=== PATIENT | male | born 1950 | race Caucasian/White ===

== ENCOUNTER 2018-11-02 15:18 | Emergency (ER) | payer OTHER, MEDICARE ==
[2018-11-02 15:34] VITALS: PULSE 62
--- NOTE | 2018-11-02 16:00 | ERPHSYRPT ---
- History of Present Illness Time Seen by Provider: 11/02/18 15:45 Source: patient Exam Limitations: clinical condition Patient Subjective Stated Complaint: Fell down camper steps and landed on grass and his right shoulder, right shoulder appears to be dislocated or broken Triage Nursing Assessment: Pt walked into the ER in a make-shift sling, vitals wnl, capillary refill good, wiggles fingers, pulses normal, small abrasion to the right lateral side of the right knee, denies losing consciousness, denies hitting head, denies any other injury Physician History: PATIENT WITH A HISTORY OF HYPERTENSION, CVA, STATES HE SLIPPED AND FELL DOWN TRAILER STEPS ONTO HIS RIGHT SHOULDER. PATIENT DENIES HEAD, NECK OR BACK INJURY. HE COMPLAINS OF SHOULDER DEFORMITY. DENIES NUMBNESS, TINGLING OR WEAKNESS IN EXTREMITIES. Occurred: just prior to arrival Reason for Fall: tripped Injuries/Pain Location: upper extremity Loss of Consciousness: no loss of consciousness Quality: sharpness Severity of Pain-Max: mild Severity of Pain-Current: mild Modifying Factors: Improves With: movement Associated Symptoms (Fall): denies symptoms Allergies/Adverse Reactions: No Known Drug Allergies Allergy (Verified 11/02/18 15:34) Home Medications: Amlodipine Besylate 5 mg PO DAILY 11/02/18 [History] Aspirin EC 81 mg [Ecotrin 81 mg] 81 mg PO DAILY 11/02/18 [History] Atorvastatin Calcium 80 mg PO DAILY 11/02/18 [History] Cyanocobalamin (Vitamin B-12) [B-12] 1 tab PO DAILY 11/02/18 [History] FA/Mv,Ca,Iron,Min/Lycopene/Lut [Centrum Tablet] 1 each PO DAILY 11/02/18 [ History] Tolterodine Tartrate [Tolterodine Tartrate ER] 4 mg PO DAILY 11/02/18 [History] Hx Tetanus, Diphtheria Vaccination/Date Given: No - Review of Systems Constitutional: No Fever, No Chills Eyes: No Symptoms Ears, Nose, & Throat: No Symptoms Respiratory: No Symptoms, No Cough, No Dyspnea Cardiac: No Symptoms, No Chest Pain, No Edema, No Syncope Abdominal/Gastrointestinal: No Symptoms, No Abdominal Pain, No Nausea, No Vomiting, No Diarrhea Genitourinary Symptoms: No Symptoms, No Dysuria Musculoskeletal: Injury, Joint Pain, Joint Swelling, No Back Pain, No Neck Pain Skin: No Symptoms, No Rash Neurological: No Dizziness, No Focal Weakness, No Sensory Changes Psychological: No Symptoms Endocrine: No Symptoms All Other Systems: Reviewed and Negative - Past Medical History Pertinent Past Medical History: Yes Neurological History: Peripheral Neuropathy, Stroke Cardiac History: Hypertension Respiratory History: No Pertinent History Endocrine Medical History: No Pertinent History Musculoskeletal History: Osteoarthritis, Other Other Medical History: Numbness in B feet - Past Surgical History Past Surgical History: Yes Musculoskeletal: Orthopedic Surgery Other Surgical History: spinal surgery - Social History Smoking Status: Never smoker Exposure to second hand smoke: Yes Drug Use: none Patient Lives Alone: No - Nursing Vital Signs Nursing Vital Signs: Initial Vital Signs Temperature 97.8 F 11/02/18 15:25 Pulse Rate 62 11/02/18 15:25 Blood Pressure 146/81 11/02/18 15:25 O2 Sat by Pulse Oximetry 92 L 11/02/18 15:25 Pain Scale Pain Intensity 4 - [place] Coma Score Best Eye Response ([place]): (4) open spontaneously Best Verbal Response ([place]): (5) oriented Best Motor Response ([place]): (6) obeys commands [place] Total: 15 - Physical Exam General Appearance: no apparent distress, alert Head Injury: no evidence of injury Eye Exam: PERRL/EOMI ENT Exam: airway nml Neck Exam: supple, full range of motion (NO POST CERVICAL SPINAL TENDERNESS), normal inspection, No tenderness Respiratory/Chest Exam: normal breath sounds, No chest tenderness, No respiratory distress Cardiovascular Exam: normal heart sounds, regular rate/rhythm Gastrointestinal Exam: soft, normal bowel sounds, No tenderness, No distention, No guarding, No ecchymosis Back Exam: normal inspection, normal range of motion, No vertebral tenderness Extremity Exam: normal range of motion, pelvis stable, limited range of motion ( RIGHT SHOULDER, A-C SEPARATION MARKED, NO SWELLING, DEFORMITY OR ECCHYMOSIS), other (LEFT RADIAL PULSE 2+), No deformities Peripheral Pulses: carotid (R): 2+, carotid (L): 2+, femoral (R): 2+, femoral (L ): 2+, dorsalis-pedis (R): 2+, dorsalis-pedis (L): 2+ Neurologic Exam: alert, oriented x 3, cooperative, sensation nml, No motor deficits Skin Exam: normal color, warm, dry SpO2 Interpretation: normal SpO2: 92 - Radiology Exams Right Shoulder X-ray Interpretation: Interpreted by me (NO FRACTURE OR DISLOCATION, RIGHT A-C SEPARATION) Right Clavicle X-ray Interpretation: Interpreted by me (RIGHT A-C SEPARATION, NO FRACTURE) Ordered Tests: Active Orders 24 hr Category Date Time Status CLAVICLE Stat Exams 11/02/18 15:57 Taken SHOULDER Stat Exams 11/02/18 15:57 Taken Medication Summary Discontinued Medications Generic Name Dose Route Start Last Admin Trade Name Jyoti PRN Reason Stop Dose Admin Acetaminophen 975 mg 11/02/18 16:22 11/02/18 16:32 Tylenol 325 Mg PO 11/02/18 16:23 975 mg STAT STA Administration Acetaminophen Confirm 11/02/18 16:31 Tylenol 325 Mg Administered 11/02/18 16:32 Dose 975 mg .ROUTE .STK-MED ONE - Progress Progress: pain not gone completely Progress Note: 11/02/18 17:04 TYLENOL 975MG ORALLY, APPLICATION RIGHT ARM SLING Counseled pt/family regarding: diagnosis, need for follow-up, rad results - Departure Departure Disposition: Home Clinical Impression: Separation of right acromioclavicular joint, type 5 Condition: Stable Critical Care Time: No Referrals: MONISHA SÁNCHEZ [Primary Care Provider] - Additional Instructions: TYLENOL OR MOTRIN NEEDED FOR PAIN. WEAR RIGHT ARM SLING FOR COMFORT. APPLY ICE OVER SHOULDER SWELLING EVERY 4 HOURS, 30 MINUTES FOR 48 HOURS. CONSULT YOUR PRIMARY CARE PROVIDER FOR ORTHOPEDIC SURGICAL REFERRAL.
[2018-11-02 16:13] VITALS: BP 136/88
[2018-11-02] MEDS ORDERED: TYLENOL 325 MG PO STA (16:22)
[2018-11-02] MEDS ORDERED: TYLENOL 325 MG ONE (16:31)
[2018-11-02 17:02] VITALS: O2SAT 92
--- NOTE | 2018-11-02 21:58 | XRAY ---
Indication: Pain following fall. Comparison: None 2 views of the right clavicle demonstrates AC separation with the acromion markedly inferior to the clavicle. No other bony, articular, or soft tissue abnormalities.
--- NOTE | 2018-11-02 22:00 | XRAY ---
Indication: Pain following fall. Comparison: None 3 views of the right shoulder demonstrates AC separation with the acromion markedly inferior to the clavicle in a bayonet apposition/alignment. No other bony, articular, or soft tissue abnormalities.
== END 2018-11-02 17:13 | disposition home or self-care (01) ==
LOC: ED 15:18
DX: S43.101A Unspecified dislocation of right acromioclavicular joint, initial encounter (principal); W17.89XA Other fall from one level to another, initial encounter; I10 Essential (primary) hypertension; Z86.73 Personal history of transient ischemic attack (TIA), and cerebral infarction without residual deficits
CPT/HCPCS: 73000; 73030; 99283; A9270-GY

== ENCOUNTER 2020-11-17 11:54 | Day surgery (SDC) | payer MEDICARE ==
[~2020-11-17 11:54] MED LIST: BUPIVACAINE 0.5% VIAL IJ ONE; Lactated Ringers 1,000 ML IV ONE; XYLOCAINE 1% HCL 20 ML MDV ONE
[2020-11-17] MEDS ORDERED: Lactated Ringers 1,000 ML IV ONE (12:44)
[2020-11-17] MEDS ORDERED: CEFAZOLIN 2 GM-D5W BAG** 2 GM/50 ML ML IV ONE (12:44)
[2020-11-17] MEDS ORDERED: CEFAZOLIN 2 GM-D5W BAG** 2 GM/50 ML ML IV SCH (13:00)
[2020-11-17] MEDS ORDERED: Lactated Ringers 1,000 ML IV SCH (13:00)
[2020-11-17] MEDS ORDERED: Ketamine HCl 50 MG/ML ONE (14:03)
[2020-11-17] MEDS ORDERED: DIPRIVAN 200 MG/20 ML IV ONE ×4 (14:05→15:47)
[2020-11-17] MEDS ORDERED: Versed 2 MG/2 ML Injection ONE (14:08)
[2020-11-17] MEDS ORDERED: TORAdol 30 mg Injection ONE (16:02)
--- NOTE | 2020-11-17 16:28 | XRAY ---
Indication: Left IP joint fusion. Intraoperative fluoroscopy provided for 31 seconds. 3 digital spot images of left great toe demonstrates osteotomy base distal phalanx with ultimate 2 intact orthopedic richa traversing IP joint. Correlate with intraoperative findings/report.
--- NOTE | 2020-11-17 16:30 | XRAY ---
Indication: Right IP joint fusion. Intraoperative fluoroscopy provided for 25 seconds. 4 right digital spot images of right great toe demonstrates ultimate 2 intact orthopedic richa traversing IP joint. Correlate with intraoperative findings/report.
--- NOTE | 2020-11-17 16:38 | XRAY ---
25 seconds of fluoroscopy was used in surgery for a fusion of the right 1st digit IP joint.
--- NOTE | 2020-11-17 16:38 | XRAY ---
31 seconds of fluoroscopy was used in surgery for a fusion of the left 1st digit IP joint.
[2020-11-17 17:48] VITALS: PULSE 56
[2020-11-17 17:50] VITALS: BP 176/85; O2SAT 92
--- NOTE | 2020-11-18 08:56 | OP ---
SURGERY DATE/TIME: 11/17/2020 1443 PREOPERATIVE DIAGNOSES: 1) Hallux malleus. 2) Diabetes mellitus, controlled. 3) Diabetic foot ulceration. 4) Preulcerative lesion. POSTOPERATIVE DIAGNOSES: 1) Hallux malleus. 2) Diabetes mellitus, controlled. 3) Diabetic foot ulceration. 4) Preulcerative lesion. PROCEDURE: Bilateral interphalangeal joint fusion of hallux. SURGEON: Vidal Grubbs DPM. DAY PORTER: None. ANESTHESIA: MAC plus local. HEMOSTASIS: Ankle tourniquet set to 250 mm of Mercury to bilateral lower extremity, 44 minutes to the left and 40 minutes to the right. ESTIMATED BLOOD LOSS: Less than 10 cc. MATERIALS: 4-0 Monocryl, 3-0 Nylon, two - 10 x 8 Jhonathan Arcus richa and two - 8 x 8 Jhonathan Arcus richa. INJECTABLES: 40 cc of a 1:1 mixture of 1% lidocaine plain and 0.5% bupivacaine plain injected in a hallux block-type fashion preoperatively and postoperatively 10 cc for each injection. INDICATION FOR PROCEDURE: Marino is a very pleasant 70 year-old male who presented to my clinic with bilateral hallux malleus and ulceration to the distal tip of these areas. The patient suffered recent ulcerative lesion to the distal tip of the left hallux which was healed in all in and outpatient setting. However, displays signs to the contralateral right extremity of preulcerative lesions. The patient had failed outpatient therapy with conservative management of padding and orthotics as well as extra depth shoes in the past. However, he has failed this therapy multiple times and would like something definitive to be done in order to prevent an amputation in the future. The patient was advised on the options available multiple occasions and he wishes to proceed with surgical intervention at this time. The patient understands all of risks, benefits and complications of surgical intervention at this time including but not limited to possible failure of surgical intervention, possible infection, possible need for revision, nonbone healing, nonwound healing, delayed wound healing, delayed bone healing, possible irritating hardware and need for removal in the future. The patient understands this and wishes to proceed. DESCRIPTION OF PROCEDURE AND FINDINGS: The patient was brought into the OR after adequate assessment by the anesthesia team and placed under anesthesia under MAC sedation. At this time a well-padded ankle tourniquet was applied to the bilateral lower extremity at the level of the malleoli and the tourniquet was set to 250 mm of Mercury. At this time the bilateral lower extremity was prepped and draped in usual sterile fashion. A double extremity drape was utilized to prep and drape the patient in the typical sterile fashion. At this time attention was directed to the left foot at the semirigid contracture of the hallux which was assessed clinically. At this time Esmarch was used to exsanguinate the foot and the tourniquet was set to 250 mm of Mercury. At this time a 15 blade was utilized to make an incision at the dorsal aspect of the interphalangeal joint of the hallux careful dissection of the soft tissue was performed utilizing a combination of dissecting scissors and a 15 blade being careful not to damage any muscular structures or detach any tendons. At this time the capsule of the interphalangeal joint was encountered and a 15 blade was utilized to perform a J-stroke to detach the medial and lateral collateral ligament of the hallux. At this time the head of the proximal phalanx was exposed and a sagittal saw was utilized to remove the cartilage from this area perpendicular to longitudinal access of the proximal phalanx. At this time the sagittal saw was then utilized to resect the base of the distal phalanx. At this time the area was flushed of any remaining cartilage and 2-0 drill was utilized to make preparations in the bone with healthy bleeding surface. At this time a K-wire was utilized to temporarily fixate the arthrodesis site in the adequate position and this was checked under fluoroscopy in multiple views and frame. This was deemed to be adequate and a 10 x 8 Jhonathan Arcus staple was implanted into the dorsolateral aspect of the arthrodesis site gaining adequate compression. At this time an 8 x 8 was then placed at the dorsomedial aspect of the arthrodesis site this once again was checked under fluoroscopy and was deemed to be adequate. At this time copious amounts of sterile saline utilized to flush the incision site. The extensor tendon was then repaired the partial disruption that was performed during initial dissection at this time. 4-0 Monocryl was utilized to perform the tendon repair and the skin was coapted in a simple interrupted-type fashion coapting the subcutaneous tissue. At this time 3-0 Nylon was then utilized in interrupted-type fashion to coapt the skin edges. A dressing consisting of Betadine, Adaptic, 4x4, Kerlix and 4 inch FELIPE was applied to the left lower extremity and a surgical shoe was applied. The exact same procedure took place to the right lower extremity. At this time attention was directed to the right foot at the semirigid contracture of the hallux which was assessed clinically. At this time Esmarch was used to exsanguinate the foot and the tourniquet was set to 250 mm of Mercury. At this time a 15 blade was utilized to make an incision at the dorsal aspect of the interphalangeal joint of the hallux careful dissection of the soft tissue was performed utilizing a combination of dissecting scissors and a 15 blade being careful not to damage any muscular structures or detach any tendons. At this time the capsule of the interphalangeal joint was encountered and a 15 blade was utilized to perform a J-stroke to detach the medial and lateral collateral ligament of the hallux. At this time the head of the proximal phalanx was exposed and a sagittal saw was utilized to remove the cartilage from this area perpendicular to longitudinal access of the proximal phalanx. At this time the sagittal saw was then utilized to resect the base of the distal phalanx. At this time the area was flushed of any remaining cartilage and 2-0 drill was utilized to make preparations in the bone with healthy bleeding surface. At this time a K-wire was utilized to temporarily fixate the arthrodesis site in the adequate position and this was checked under fluoroscopy in multiple views and frame. This was deemed to be adequate and a 10 x 8 Jhonathan Arcus staple was implanted into the dorsolateral aspect of the arthrodesis site gaining adequate compression. At this time an 8 x 8 was then placed at the dorsomedial aspect of the arthrodesis site this once again was checked under fluoroscopy and was deemed to be adequate. At this time copious amounts of sterile saline utilized to flush the incision site. The extensor tendon was then repaired the partial disruption that was performed during initial dissection at this time. 4-0 Monocryl was utilized to perform the tendon repair and the skin was coapted in a simple interrupted-type fashion coapting the subcutaneous tissue. At this time 3-0 Nylon was then utilized in interrupted-type fashion to coapt the skin edges. A dressing consisting of Betadine, Adaptic, 4x4, Kerlix and 4 inch FELIPE was applied to the right lower extremity and a surgical shoe was applied. Total tourniquet time to the left lower extremity was 44 minutes; to the right lower extremity was 40 minutes. Following both procedures a postoperative block was performed to the bilateral hallux in a hallux block-type fashion with 10 cc each of 1:1 mixture of 1% lidocaine plain and 0.5% Marcaine plain. At this time the patient was reversed from anesthesia and brought into the postoperative anesthesia care unit with vital signs stable and vascular status intact. The patient handled the anesthesia and the procedure without complication. Postoperative orders as indicated in the patient's chart.
== END 2020-11-17 18:00 | disposition home or self-care (01) ==
LOC: SDC 11:54
PROVIDERS: ATTEND Podiatrist Foot & Ankle Surgery
DX: M20.42 Other hammer toe(s) (acquired), left foot (principal); M20.41 Other hammer toe(s) (acquired), right foot; E11.621 Type 2 diabetes mellitus with foot ulcer
CPT/HCPCS: 73620; 76000; 82947; J0690; J1885; J2250; J2704

== ENCOUNTER 2021-09-28 16:19 | Emergency (ER) | payer MEDICARE, SELFPAY ==
--- NOTE | 2021-09-28 16:41 | ERPHSYRPT ---
- History of Present Illness Time Seen by Provider: 09/28/21 16:41 Source: patient, family Exam Limitations: no limitations Patient Subjective Stated Complaint: Pt states "We were sent here by Dr. Sánchez. My legs are cramping and I had blood work done and they said to come to the ER." Triage Nursing Assessment: Pt presented alert and oriented X 3, skin pwd. Pt ambulates with an upright steady gait, able to speak in clear full sentences pt in no apaprent respiratory distress. Physician History: This is a 71-year-old white female patient of Dr. Sánchez who saw her approximately 3 weeks ago and had labs drawn. Today, the family had still had not heard of the results of those test and called the office. Dr. Sánchez was not in and would not be back until next Monday. However, someone in their office reviewed the results from 3 weeks ago and told them that they needed to come to the emergency room to receive intravenous fluids. Apparently there was a CPK that was elevated. The remainder of the lab work did not appear to be emergent or urgent. Patient has a significant cardiac history. He has a history of cody vated cholesterol hypertension. He denies chest pain. He denies shortness of breath. He has had no leg swelling. Patient has a history of peripheral neuropathy and CVA in the past Method of Injury: other (No injury) Occurred: other (Present for over 2 months) Quality: cramping (Bilateral lower extremities) Severity of Pain-Max: mild Severity of Pain-Current: mild Lower Extremities Pain: leg: bilateral Modifying Factors: Improves With: nothing Associated Symptoms: none Allergies/Adverse Reactions: Opioids - Morphine Analogues Allergy (Severe, Verified 11/17/20 12:44) has had an ileus twice from taking opiods Home Medications: Amlodipine Besylate 5 mg PO DAILY 11/02/18 [History] Aspirin EC 81 mg [Ecotrin 81 mg] 81 mg PO DAILY 11/02/18 [History] Atorvastatin Calcium 80 mg PO DAILY 11/02/18 [History] Cyanocobalamin (Vitamin B-12) [B-12] 1 tab PO DAILY 11/02/18 [History] FA/Mv,Ca,Iron,Min/Lycopene/Lut [Centrum Tablet] 1 each PO DAILY 11/02/18 [History] Acetaminophen [Tylenol] 325 mg PO DAILY 11/10/20 [History] Cholecalciferol (Vitamin D3) [Vitamin D] 1,000 unit PO DAILY 11/10/20 [History] Oxybutynin Chloride [Oxybutynin Chloride ER] 10 mg PO DAILY 11/10/20 [History] Hx Tetanus, Diphtheria Vaccination/Date Given: No Hx Influenza Vaccination/Date Given: Yes Hx Pneumococcal Vaccination/Date Given: Yes Immunizations Up to Date: Yes Travel Risk - International Travel Have you traveled outside of the country in past 3 weeks: No - Coronavirus Screening Are you exhibiting any of the following symptoms?: No Close contact with a COVID-19 positive Pt in past 14-21 Days: No - Vaccine Status Have you recieved a Covid-19 vaccination: Yes [employer]: Moderna - Vaccination Dates Date of 2cond Vaccination (if applicable): 2020 - Review of Systems Constitutional: No Symptoms Eyes: No Symptoms Ears, Nose, & Throat: No Symptoms Respiratory: No Symptoms Cardiac: No Symptoms Abdominal/Gastrointestinal: No Symptoms Genitourinary Symptoms: No Symptoms Musculoskeletal: Other (Cramping bilateral lower extremities) Skin: No Symptoms Neurological: No Symptoms Psychological: No Symptoms Endocrine: No Symptoms Hematologic/Lymphatic: No Symptoms Immunological/Allergic: No Symptoms All Other Systems: Reviewed and Negative - Past Medical History Pertinent Past Medical History: Yes Neurological History: Peripheral Neuropathy, Stroke Cardiac History: High Cholesterol, Hypertension Respiratory History: No Pertinent History Endocrine Medical History: No Pertinent History Musculoskeletal History: No Pertinent History GI Medical History: No Pertinent History History: No Pertinent History Psycho-Social History: No Pertinent History Male Reproductive Disorders: No Pertinent History Other Medical History: Numbness in B feet,hx ileus twice dt opiod pain meds - Past Surgical History Past Surgical History: Yes Neuro Surgical History: No Pertinent History Cardiac: No Pertinent History Respiratory: No Pertinent History Gastrointestinal: Appendectomy Genitourinary: No Pertinent History Musculoskeletal: Orthopedic Surgery Male Surgical History: No Pertinent History Other Surgical History: spinal surgery,ear and hand repair left,shoulder surgery right - Social History Smoking Status: Never smoker Exposure to second hand smoke: Yes Drug Use: none Patient Lives Alone: No - Nursing Vital Signs Nursing Vital Signs: Initial Vital Signs Temperature 97.6 F 09/28/21 16:28 Pulse Rate 62 09/28/21 16:28 Respiratory Rate 20 09/28/21 16:28 Blood Pressure 110/70 09/28/21 16:28 O2 Sat by Pulse Oximetry 95 09/28/21 16:28 Pain Scale Pain Intensity 0 - Physical Exam General Appearance: no apparent distress, alert, anxiety Eyes, Ears, Nose, Throat Exam: normal ENT inspection, moist mucous membranes Neck Exam: normal inspection, non-tender, supple, full range of motion Cardiovascular/Respiratory Exam: chest non-tender, normal breath sounds, regular rate/rhythm, heart sounds normal, no respiratory distress Gastrointestinal/Abdominal Exam: non-tender Back Exam: normal inspection, normal range of motion, No CVA tenderness, No vertebral tenderness Hips Exam: bilateral: non-tender, normal inspection, normal range of motion, no evidence of injury Legs Exam: bilateral leg: non-tender, normal inspection, normal range of motion, no evidence of injury Knees Exam: bilateral knee: non-tender, normal inspection, normal range of motion, no evidence of injury Ankle Exam: bilateral ankle: non-tender, normal inspection, normal range of motion, no evidence of injury Foot Exam: bilateral foot: non-tender, normal inspection, normal range of motion, no evidence of injury Neuro/Tendon Exam: normal sensation, normal motor functions, normal tendon functions, responds to pain, no evidence tendon injury Mental Status Exam: alert, oriented x 3, cooperative Skin Exam: normal color, warm, dry SpO2 Interpretation: normal SpO2: 95 O2 Delivery: Room Air - Course Nursing assessment & vital signs reviewed: Yes EKG Interpreted by Me: RATE (60), Sinus Rhythm, NORMAL AXIS, NORMAL INTERVALS, NORMAL QRS, NORMAL ST-T, Other (Acute ischemic changes. No comparison EKG available.) Ordered Tests: Active Orders 24 hr Category Date Time Status EKG-ER Only STAT Care 09/28/21 17:01 Active IV Insertion STAT Care 09/28/21 17:01 Active Pulse Oximetry (ED) STAT Care 09/28/21 17:01 Active CBC W DIFF Stat Lab 09/28/21 16:40 Completed CK-Creatinine Phosphokinase Stat Lab 09/28/21 16:40 Completed CMP Stat Lab 09/28/21 16:40 Completed D-DIMER QUANTITATIVE Stat Lab 09/28/21 16:40 Completed TROPONIN Q3H Lab 09/28/21 16:40 Completed TROPONIN Q3H Lab 09/28/21 20:15 Ordered TROPONIN Q3H Lab 09/28/21 23:15 Ordered TROPONIN Q3H Lab 09/29/21 02:15 Ordered TROPONIN Q3H Lab 09/29/21 05:15 Ordered Medication Summary Discontinued Medications Generic Name Dose Route Start Last Admin Trade Name Jyoti PRN Reason Stop Dose Admin Sodium Chloride 1,000 mls @ 999 mls/hr 09/28/21 17:01 09/28/21 18:15 Sodium Chloride 0.9% 1000 Ml IV 09/28/21 18:01 Infused .Q1H1M STA Infusion Sodium Chloride Confirm 09/28/21 17:06 Sodium Chloride 0.9% 1000 Ml Administered 09/28/21 17:07 Dose 1,000 mls @ ud .ROUTE .K-MED ONE Lab/Rad Data: Laboratory Result Diagrams 09/28/21 16:40 09/28/21 16:40 Laboratory Results 09/28/21 09/28/21 09/28/21 Range/Units 16:40 16:40 16:40 WBC (4.0-10.5) x10^3/uL RBC (4.1-5.6) x10^6/uL Hgb (12.5-18.0) g/dL Hct (42-50) % MCV (78-100) fL MCH (26-32) pg MCHC (32-36) g/dL RDW (11.5-14.0) % Plt Count (150-450) x10^3/uL MPV (7.5-11.0) fL Gran % (36.0-66.0) % Immature Gran % (Auto) (0.00-0.4) % Nucleat RBC Rel Count (0.00-0.1) % Eos # (Auto) (0-0.5) x10^3/uL Immature Gran # (Auto) (0.00-0.03) x10^3u/L Absolute Lymphs (auto) (1.0-4.6) x10^3/uL Absolute Monos (auto) (0.0-1.3) x10^3/uL Absolute Nucleated RBC (0.00-0.01) x10^3u/L Lymphocytes % (24.0-44.0) % Monocytes % (0.0-12.0) % Eosinophils % (0.00-5.0) % Basophils % (0.0-0.4) % Absolute Granulocytes (1.4-6.9) x10^3/uL Basophils # (0-0.4) x10^3/uL D-Dimer 0.40 (0.0-0.50) ng/mL Sodium 139 (137-145) mmol/L Potassium 4.1 (3.5-5.1) mmol/L Chloride 102 (98-107) mmol/L Carbon Dioxide 27 (22-30) mmol/L Anion Gap 14.3 (5-15) MEQ/L BUN 25 H (9-20) mg/dL Creatinine 1.03 (0.66-1.25) mg/dL Estimated GFR > 60.0 ML/MIN Glucose 94 (74-106) mg/dL Calcium 9.2 (8.4-10.2) mg/dL Total Bilirubin 0.90 (0.2-1.3) mg/dL AST 31 (17-59) U/L ALT 24 (0-50) U/L Alkaline Phosphatase 97 (38-126) U/L Creatine Kinase 166 (55-170) U/L Troponin I < 0.012 (0.000-0.034) ng/mL Serum Total Protein 7.4 (6.3-8.2) g/dL Albumin 4.4 (3.5-5.0) g/dL 09/28/21 Range/Units 16:40 WBC 10.6 H (4.0-10.5) x10^3/uL RBC 4.57 (4.1-5.6) x10^6/uL Hgb 13.4 (12.5-18.0) g/dL Hct 40.4 L (42-50) % MCV 88.4 (78-100) fL MCH 29.3 (26-32) pg MCHC 33.2 (32-36) g/dL RDW 12.9 (11.5-14.0) % Plt Count 225 (150-450) x10^3/uL MPV 11.5 H (7.5-11.0) fL Gran % 51.2 (36.0-66.0) % Immature Gran % (Auto) 0.2 (0.00-0.4) % Nucleat RBC Rel Count 0.0 (0.00-0.1) % Eos # (Auto) 0.42 (0-0.5) x10^3/uL Immature Gran # (Auto) 0.02 (0.00-0.03) x10^3u/L Absolute Lymphs (auto) 3.69 (1.0-4.6) x10^3/uL Absolute Monos (auto) 0.91 (0.0-1.3) x10^3/uL Absolute Nucleated RBC 0.00 (0.00-0.01) x10^3u/L Lymphocytes % 35.0 (24.0-44.0) % Monocytes % 8.6 (0.0-12.0) % Eosinophils % 4.0 (0.00-5.0) % Basophils % 1.0 (0.0-0.4) % Absolute Granulocytes 5.40 (1.4-6.9) x10^3/uL Basophils # 0.11 (0-0.4) x10^3/uL D-Dimer (0.0-0.50) ng/mL Sodium (137-145) mmol/L Potassium (3.5-5.1) mmol/L Chloride (98-107) mmol/L Carbon Dioxide (22-30) mmol/L Anion Gap (5-15) MEQ/L BUN (9-20) mg/dL Creatinine (0.66-1.25) mg/dL Estimated GFR ML/MIN Glucose (74-106) mg/dL Calcium (8.4-10.2) mg/dL Total Bilirubin (0.2-1.3) mg/dL AST (17-59) U/L ALT (0-50) U/L Alkaline Phosphatase (38-126) U/L Creatine Kinase (55-170) U/L Troponin I (0.000-0.034) ng/mL Serum Total Protein (6.3-8.2) g/dL Albumin (3.5-5.0) g/dL - Departure Departure Disposition: Home Clinical Impression: Bilateral leg cramps Condition: Stable Critical Care Time: No Referrals: MONISHA SÁNCHEZ [Primary Care Provider] - Follow up/PCP as directed Additional Instructions: Continue your medication as prescribed. Follow-up with your primary care physician for further management.
[2021-09-28] MEDS ORDERED: Sodium Chloride 0.9% 1000 ML 1,000 ML IV STA (17:01)
[2021-09-28] MEDS ORDERED: Sodium Chloride 0.9% 1000 ML 1,000 ML ONE (17:06)
[2021-09-28 17:20] LABS: Basophil (Absolute #) 0.11 x10^3/uL (0-0.4); Eosinophil (Absolute #) 0.42 x10^3/uL (0-0.5); Hematocrit 40.4 % (42-50); Hemoglobin 13.4 g/dL (12.5-18.0); Lymphocyte (Absolute #) 3.69 x10^3/uL (1.0-4.6); Mean Cell Volume 88.4 fL (78-100); Mean Corpuscular Hemoglobin 29.3 pg (26-32); Mean Corpuscular Hgb Concent. 33.2 g/dL (32-36); Mean Platelet Volume 11.5 fL (7.5-11.0); Monocyte (Absolute #) 0.91 x10^3/uL (0.0-1.3); Monocytes % 8.6 % (0.0-12.0); Neutrophil % 51.2 % (36.0-66.0); Platelet Count 225 x10^3/uL (150-450); Red Blood Count 4.57 x10^6/uL (4.1-5.6); Red Cell Distribution Width 12.9 % (11.5-14.0); White Blood Count 10.6 x10^3/uL (4.0-10.5)
[2021-09-28 17:36] LABS: ALBUMIN 4.4 g/dL (3.5-5.0); ALKALINE PHOSPHATASE 97 U/L (38-126); ANION GAP 14.3 MEQ/L (5-15); BLOOD UREA NITROGEN 25 mg/dL (9-20); CHLORIDE 102 mmol/L (98-107); CK-Creatinine Phosphokinase 166 U/L (55-170); Calcium 9.2 mg/dL (8.4-10.2); Carbon Dioxide 27 mmol/L (22-30); Creatinine 1 1.03 mg/dL (0.66-1.25); EST GLOMERULAR FILTRATION RATE > 60.0 ML/MIN; Glucose 94 mg/dL (74-106); Potassium 4.1 mmol/L (3.5-5.1); SGOT/AST 31 U/L (17-59); SGPT/ALT 24 U/L (0-50); SODIUM 139 mmol/L (137-145); Total Protein 7.4 g/dL (6.3-8.2)
[2021-09-28 19:21] VITALS: BP 121/78; PULSE 61; O2SAT 98
== END 2021-09-28 19:21 | disposition home or self-care (01) ==
LOC: ED 16:19
DX: R25.2 Cramp and spasm (principal); I10 Essential (primary) hypertension; E78.5 Hyperlipidemia, unspecified; G62.9 Polyneuropathy, unspecified; Z79.899 Other long term (current) drug therapy
CPT/HCPCS: 36000; 36415; 80053; 82550; 84484; 85025; 85379; 93005; 94760; 96360; 99284